=== PATIENT | female | born 1985 | race Two or more races ===

== ENCOUNTER 2022-12-17 09:01 | Outpatient (CLI) | payer OTHER | END 2022-12-17 09:09 | disposition home or self-care (01) | LOC: MAMO-SONO 09:01 | PROVIDERS: ATTEND Obstetrics & Gynecology | DX: Z12.31 Encounter for screening mammogram for malignant neoplasm of breast (principal); N64.4 Mastodynia; N60.19 Diffuse cystic mastopathy of unspecified breast; N92.1 Excessive and frequent menstruation with irregular cycle; N91.4 Secondary oligomenorrhea ==

== ENCOUNTER 2023-08-21 09:44 | Outpatient (CLI) | payer OTHER | END 2023-08-21 09:52 | disposition home or self-care (01) | LOC: SONOGRAMA 09:44 | PROVIDERS: ATTEND Obstetrics & Gynecology | DX: N61.0 Mastitis without abscess (principal) ==

== ENCOUNTER 2025-01-04 09:11 | Outpatient (CLI) | payer OTHER | END 2025-01-04 09:32 | disposition home or self-care (01) | LOC: MAMO-SONO 09:11 | PROVIDERS: ATTEND Obstetrics & Gynecology | DX: N64.4 Mastodynia (principal); N60.19 Diffuse cystic mastopathy of unspecified breast; D25.1 Intramural leiomyoma of uterus ==